=== PATIENT | male | born 1950 | race African-American/Black ===

== ENCOUNTER 2018-03-20 14:29 | Inpatient (IN) | payer MEDICARE, OTHER ==
[~2018-03-20] VITALS: Ht 180.3 cm; Wt 78.6 kg
[2018-03-20 15:17] LABS: BASOPHILS # (AUTO) 0.04 x10^3/uL (0-0.1); BASOPHILS % (AUTO) 1 % (0-1); EOSINOPHILS # (AUTO) 0.48 x10^3/uL (0-0.4); EOSINOPHILS % (AUTO) 8 % (1-7); LYMPHOCYTES # (AUTO) 2.99 x10^3/uL (1-3.4); LYMPHOCYTES % (AUTO) 50 % (22-44); MD NO; MEAN CORPUSCULAR HEMOGLOBIN 28.5 pg (27.5-34.5); MEAN CORPUSCULAR HGB CONC 32.5 g/dL (33.2-36.2); MEAN CORPUSCULAR VOLUME 87.7 fL (81-97); MEAN PLATELET VOLUME 7.8 fL (7.4-10.4); MONOCYTES # (AUTO) 0.39 x10^3/uL (0.2-0.8); MONOCYTES % (AUTO) 7 % (2-9); NEUTROPHILS # (AUTO) 2.07 x10^3/uL (1.8-6.8); NEUTROPHILS % (AUTO) 35 % (42-75); PLATELET COUNT 276 x10^3/uL (130-400); RED BLOOD COUNT 4.95 x10^6/uL (4.38-5.82)
[2018-03-20 15:28] LABS: ALBUMIN 3.8 g/dL (3.4-5.0); ANION GAP 8 mmol/L (5-15); CHLORIDE 110 mmol/L (98-107); CREATININE 1.58 mg/dL (0.7-1.3)
[2018-03-20] MEDS ORDERED: SODIUM CHLORIDE FLUSH 10ML SYR IVF ONE (15:30)
[2018-03-20 15:32] LABS: TROPONIN I < 0.015 ng/mL (0.000-0.045)
[2018-03-20] MEDS ORDERED: hydrALAzine 20 MG/ML, 1ML IVPush PRN (18:00)
[2018-03-20] MEDS ORDERED: POLYETHYLENE GLYCOL 17 GM PACKET PO PRN (18:00)
[2018-03-20] MEDS ORDERED: BISACODYL 10 MG SUPP PR PRN (18:00)
[2018-03-20] MEDS ORDERED: DOCUSATE 100 MG CAPSULE PO PRN (18:00)
[2018-03-20] MEDS ORDERED: ONDANSETRON 2MG/ML, 2ML IVPush PRN (18:00)
[2018-03-20] MEDS ORDERED: ACETAMINOPHEN 325 MG TABLET PO PRN (18:00)
[2018-03-20 19:11] LABS: INTERNATIONAL NORMALIZED RATIO 1.07 (0.93-1.1)
[2018-03-20 19:54] VITALS: BP 142/82
[2018-03-20] MEDS: NS + 20MEQ KCL 1,000 ML IV SCH (22:39)
[2018-03-20] MEDS: HEPARIN 5,000 UNITS/ML, 1ML SQ SCH (22:40)
[2018-03-21 01:34] VITALS: BP 111/69
[2018-03-21 03:01] LABS: MICROSCOPIC NOT IND
[2018-03-21 03:04] LABS: CULTURE INDICATED? NO
[2018-03-21 05:42] LABS: BASOPHILS % (AUTO) 2 % (0-1); EOSINOPHILS # (AUTO) 0.57 x10^3/uL (0-0.4); EOSINOPHILS % (AUTO) 11 % (1-7); LYMPHOCYTES # (AUTO) 2.53 x10^3/uL (1-3.4); LYMPHOCYTES % (AUTO) 47 % (22-44); MD NO; MEAN CORPUSCULAR HEMOGLOBIN 28.1 pg (27.5-34.5); MEAN CORPUSCULAR HGB CONC 32.2 g/dL (33.2-36.2); MEAN CORPUSCULAR VOLUME 87.2 fL (81-97); MEAN PLATELET VOLUME 7.8 fL (7.4-10.4); MONOCYTES # (AUTO) 0.39 x10^3/uL (0.2-0.8); MONOCYTES % (AUTO) 7 % (2-9); NEUTROPHILS # (AUTO) 1.76 x10^3/uL (1.8-6.8); NEUTROPHILS % (AUTO) 33 % (42-75); PLATELET COUNT 254 x10^3/uL (130-400); RED BLOOD COUNT 4.58 x10^6/uL (4.38-5.82); RED CELL DISTRIBUTION WIDTH 12.5 % (9.4-14.8)
[2018-03-21 05:53] LABS: CHLORIDE 111 mmol/L (98-107)
[2018-03-21] MEDS: HEPARIN 5,000 UNITS/ML, 1ML SQ SCH ×3 (05:59→22:03)
[2018-03-21 06:08] LABS: ANION GAP 9 mmol/L (5-15)
[2018-03-21 07:31] VITALS: BP 127/81
[2018-03-21] MEDS: NS + 20MEQ KCL 1,000 ML IV SCH (08:55)
[2018-03-21 12:08] VITALS: BP 124/76
[2018-03-21 20:26] VITALS: BP 116/74
[2018-03-22 02:27] VITALS: BP 113/62
[2018-03-22 05:57] LABS: ANION GAP 4 mmol/L (5-15); CALCIUM 8.5 mg/dL (8.5-10.1); CHLORIDE 109 mmol/L (98-107)
[2018-03-22 05:59] LABS: CREATININE 1.59 mg/dL (0.7-1.3)
[2018-03-22] MEDS: HEPARIN 5,000 UNITS/ML, 1ML SQ SCH ×2 (06:11→14:00)
[2018-03-22 06:51] VITALS: BP 114/74
[2018-03-22 12:07] VITALS: BP 112/70
== END 2018-03-22 16:30 | disposition home or self-care (01) | DRG 308 ==
LOC: ED 16:05 → EDIP 17:10 → 5SO 19:34 → DCLOUNGE 03-22 16:25
PROVIDERS: ADMIT Internal Medicine; ATTEND Internal Medicine
DX: R00.1 Bradycardia, unspecified (principal); N17.0 Acute kidney failure with tubular necrosis; R42 Dizziness and giddiness; I34.0 Nonrheumatic mitral (valve) insufficiency; N18.9 Chronic kidney disease, unspecified; Z87.891 Personal history of nicotine dependence; Z90.49 Acquired absence of other specified parts of digestive tract
CPT/HCPCS: 36415; 71045; 80048; 81003; 82040; 82436; 82570; 83880; 84133; 84300; 84443; 84484; 85025; 85610; 93005; 93306; 93880; 99285; J1644; J3480

== ENCOUNTER 2020-07-07 10:31 | Emergency (ER) | payer MEDICARE, OTHER ==
[~2020-07-07] VITALS: Ht 177.8 cm; Wt 74.7 kg
[2020-07-07] MEDS ORDERED: KETOROLAC 30 MG/1 ML IVPush ONE (11:00)
[2020-07-07] MEDS ORDERED: SODIUM CHLORIDE FLUSH 10ML SYR IVF ONE (11:00)
[2020-07-07] MEDS ORDERED: ONDANSETRON 2MG/ML, 2ML IVPush ONE (11:00)
[2020-07-07] MEDS ORDERED: SODIUM CHLORIDE 0.9% 1,000ML IV ONE (11:00)
[2020-07-07] MEDS ORDERED: KETOROLAC 30 MG/1 ML ONE (11:05)
[2020-07-07] MEDS ORDERED: ONDANSETRON 2MG/ML, 2ML ONE (11:05)
[2020-07-07 11:20] LABS: ALANINE AMINOTRANSFERASE 23 U/L (12-78); ALBUMIN 3.8 g/dL (3.4-5.0); CALCIUM 9.2 mg/dL (8.5-10.1); CHLORIDE 111 mmol/L (98-107); CREATININE 1.72 mg/dL (0.7-1.3)
[2020-07-07 11:22] LABS: ALKALINE PHOSPHATASE 100 U/L (45-117); BILIRUBIN,TOTAL 0.6 mg/dL (0.2-1.0); TOTAL PROTEIN 7.5 g/dL (6.4-8.2)
[2020-07-07 11:23] LABS: BASOPHILS # (AUTO) 0.03 x10^3/uL (0-0.1); BASOPHILS % (AUTO) 0 % (0-1); EOSINOPHILS # (AUTO) 0.14 x10^3/uL (0-0.4); EOSINOPHILS % (AUTO) 2 % (1-7); LYMPHOCYTES # (AUTO) 2.33 x10^3/uL (1-3.4); LYMPHOCYTES % (AUTO) 29 % (22-44); MD NO; MEAN CORPUSCULAR HEMOGLOBIN 27.8 pg (27.5-34.5); MEAN CORPUSCULAR HGB CONC 31.3 g/dL (33.2-36.2); MEAN PLATELET VOLUME 7.8 fL (7.4-10.4); MONOCYTES # (AUTO) 0.71 x10^3/uL (0.2-0.8); MONOCYTES % (AUTO) 9 % (2-9); NEUTROPHILS # (AUTO) 4.94 x10^3/uL (1.8-6.8); NEUTROPHILS % (AUTO) 61 % (42-75); PLATELET COUNT 290 x10^3/uL (130-400); RED BLOOD COUNT 4.87 x10^6/uL (4.38-5.82); RED CELL DISTRIBUTION WIDTH 13.8 % (9.4-14.8)
--- NOTE | 2020-07-07 11:24 | NUR ---
PT RETURNS FROM CT. REPORTS SOME RELIEF OF FLANK PAIN AFTER TORADOL.
[2020-07-07 11:27] LABS: ANION GAP 4 mmol/L (5-15)
[2020-07-07] MEDS ORDERED: BP MED PO (11:27)
[2020-07-07] MEDS ORDERED: MORPHINE SULFATE 4 MG/ML, 1ML IVPush PRN (11:30)
[2020-07-07 11:31] LABS: MICROSCOPIC AUTO
[2020-07-07] MEDS ORDERED: MORPHINE SULFATE 4 MG/ML, 1ML ONE (11:49)
--- NOTE | 2020-07-07 11:52 | NUR ---
PT STILL HAVING R FLANK PAIN. MEDICATED WITH MORPHINE PER ORDERS. UNDERSTANDS POC.
[2020-07-07 12:10] VITALS: BP 142/73
--- NOTE | 2020-07-07 12:10 | NUR ---
PT VERBALIZES PAIN RELIEF AFTER MORPHINE. D/C INSTRUCTIONS, MEDS & F/U APPT RV'WD WITH PT AND . RX GIVEN X3. PT AMBULATED OUT OF ED WITH WITHOUT DIFFICULTY.
== END 2020-07-07 12:35 | disposition home or self-care (01) ==
LOC: ED 11:09
DX: N13.2 Hydronephrosis with renal and ureteral calculous obstruction (principal); I10 Essential (primary) hypertension; Z90.89 Acquired absence of other organs
CPT/HCPCS: 36415; 74176; 80053; 81001; 85025; 87086; 96361; 96374; 96375; 99284; J1885; J2270; J2405; J7030